=== PATIENT | female | born 1955 | race Two or more races ===

== ENCOUNTER 2019-10-17 15:00 | Emergency (ER) | payer OTHER ==
[~2019-10-17] VITALS: Ht 165.1 cm; Wt 96.2 kg
[2019-10-17 15:02] VITALS: BP 115/81
--- NOTE | 2019-10-17 15:08 | NUR ---
PT AMBULATED TO BED 11, STEADY GAIT.
--- NOTE | 2019-10-17 15:10 | NUR ---
DR. GIMENEZ AT BEDSIDE.
--- NOTE | 2019-10-17 15:14 | NUR ---
Note andrew in EDM - 10/17/19 at 1516 by [email or web address] 62 Y/O FEMALE FROM HOME C/O LACERATION TO LT POINTER FINGER 20 MIN PRIOR TO ARRIVAL. PT STATES SHE CUT HER FINGER WITH "KNIFE LIKE" OBJECT WHILE SEWING. BLEEDING CONTROLLED WITH PRESSURE. LATERAL TIP OF LT INDEX FINGER AVULSION. PT DENIES PAIN. UNKNOWN LAST TETANUS. VSS
--- NOTE | 2019-10-17 15:17 | NUR ---
64 Y/O FEMALE FROM HOME C/O LACERATION TO LT POINTER FINGER 20 MIN PRIOR TO ARRIVAL. PT STATES SHE CUT HER FINGER WITH "KNIFE LIKE" OBJECT WHILE SEWING. BLEEDING CONTROLLED WITH PRESSURE. LATERAL TIP OF LT INDEX FINGER AVULSION. PT DENIES PAIN. UNKNOWN LAST TETANUS. VSS
[2019-10-17] MEDS ORDERED: LIDOCAINE MPF 1% 10 MG/ML VIAL INJ ONE (15:30)
--- NOTE | 2019-10-17 15:35 | NUR ---
PT TAKEN TO XR VIA WHEELCHAIR.
--- NOTE | 2019-10-17 15:45 | NUR ---
PT RETURNED FROM XR.
--- NOTE | 2019-10-17 15:49 | NUR ---
DR. GIMENEZ AT BEDSIDE FOR NERVE BLOCK PROCEDURE.
--- NOTE | 2019-10-17 16:11 | NUR ---
XEROFORM DRESSING PLACED OVER PT L 2ND DIGIT, COVERED WITH NON ADHERENT DRESSING AND WRAPPED WITH GAUZE ROLL.
[2019-10-17 16:14] VITALS: BP 115/81
== END 2019-10-17 16:13 | disposition home or self-care (01) ==
LOC: MED 15:00
DX: Z89.022 Acquired absence of left finger(s) (principal); W26.0XXA Contact with knife, initial encounter; Y93.89 Activity, other specified; Y92.89 Other specified places as the place of occurrence of the external cause; Y99.8 Other external cause status
CPT/HCPCS: 73130; 90471; 90715; 99283; J2001